=== PATIENT | male | born 1970 | race Caucasian/White ===

== ENCOUNTER 2018-10-23 08:16 | Emergency (ER) | payer BC ==
[2018-10-23 08:51] VITALS: BP 155/58
--- NOTE | 2018-10-23 09:39 | UC ---
Abdominal Pain Male HPI - HPI Summary HPI Summary: The patient is a 47-year-old male that has had right flank pain for 6 days. His pain is generally constant but he does get some relief if he sits still in a chair. He has had some anorexia. He has had a change in bowel habits with some constipation alternating with loose stool. He has not had any fever or chills. He has not had any nausea or vomiting. He denies any UTI symptoms. - History of Current Complaint Chief Complaint: UCAbdominalPain Stated Complaint: RT SIDE PAIN Time Seen by Provider: 10/23/18 09:23 Hx Obtained From: Patient Onset/Duration: Gradual Onset, Lasting Days Timing: Constant Severity Initially: Mild Severity Currently: Moderate Pain Intensity: 5 - severe at times Pain Scale Used: 0-10 Numeric Location: Diffuse - right flank Radiates: No Character: Aching Aggravating Factor(s): Food, Movement Alleviating Factor(s): Rest Associated Signs And Symptoms: Positive: Constipation, Decreased Appetite, Diarrhea - loose stools. Negative: Diaphoresis, Fever, Cough, Chest Pain, Dizzy , Back Pain, Blood in Stool, Urinary Symptoms, Nausea, Vomiting, Penile Discharge - Allergies/Home Medications Allergies/Adverse Reactions: Allergies Allergy/AdvReac Type Severity Reaction Status Date / Time No Known Allergies Allergy Verified 10/23/18 08:47 Home Medications: Home Medications Acetaminophen/Diphenhydramine [Tylenol Pm Ex-Strength Caplet] 2 each PO BEDTIME PRN 10/23/18 [History Confirmed 10/23/18] Ibuprofen TAB* [Advil TAB*] 400 mg PO Q6H PRN 10/23/18 [History Confirmed ] Melatonin 5 mg PO BEDTIME PRN 10/23/18 [History Confirmed 10/23/18] PMH/Surg Hx/FS Hx/Imm Hx Previously Healthy: Yes - Surgical History Surgical History: None - Family History Known Family History: Positive: Hypertension, Other - sister with Crohns - Social History Alcohol Use: None Substance Use Type: None Smoking Status (MU): Heavy Every Day Tobacco Smoker Amount Used/How Often: 1 PPD Length of Time of Smoking/Using Tobacco: Since Age 17 Review of Systems All Other Systems Reviewed And Are Negative: Yes Constitutional: Positive: Negative Skin: Positive: Negative Eyes: Positive: Negative ENT: Positive: Negative Respiratory: Positive: Negative Cardiovascular: Positive: Negative Gastrointestinal: Positive: Abdominal Pain, Diarrhea Genitourinary: Positive: Negative Motor: Positive: Negative Neurovascular: Positive: Negative Musculoskeletal: Positive: Negative Neurological: Positive: Negative Psychological: Positive: Negative Physical Exam Triage Information Reviewed: Yes Appearance: Well-Appearing, No Pain Distress, Well-Nourished Vital Signs: Initial Vital Signs Temp 97.6 F 10/23/18 08:41 Pulse 82 10/23/18 08:41 Resp 16 10/23/18 08:41 BP 155/58 10/23/18 08:41 Pulse Ox 99 10/23/18 08:41 Vital Signs Reviewed: Yes Eyes: Positive: Conjunctiva Clear ENT: Positive: Hearing grossly normal. Negative: Nasal congestion, Nasal drainage, Dental tenderness, Sinus tenderness, Uvula midline Neck: Positive: Supple, Nontender Respiratory: Positive: Lungs clear, Normal breath sounds, No respiratory distress, No accessory muscle use Cardiovascular: Positive: RRR, No Murmur Abdomen Description: Positive: CVA Tenderness (R) - slight. Negative: Nontender - tender RLQ and right flanks Bowel Sounds: Positive: Present Musculoskeletal: Positive: ROM Intact, No Edema Neurological: Positive: Alert Psychological Exam: Normal Skin Exam: Normal Diagnostics - Laboratory Diagnostic Studies Completed/Ordered: UA tr protein - Radiology No standard instances Radiology Interpretation Completed By: Radiologist Summary of Radiographic Findings: THERE IS MILD INFLAMMATORY CHANGE AND DILATATION OF THE PROXIMAL CELIAC TRUNK. THE. DIFFERENTIAL INCLUDES CELIAC ARTERY DISSECTION VERSUS ARTERITIS. CONSIDER FURTHER. EVALUATION WITH CT ANGIOGRAPHY OF THE ABDOME Abd Pain Male Course/Dx - Course Course Of Treatment: Advised he may have potentially serious life threatening cause of abd pain that needed a CT angiogram. HE REFUSED EMS TRANSFER. I spoke to Dr. Gutiérrez at [facility]. transfer accepted - Differential Dx/Clinical Impression Provider Diagnosis: Abdominal pain of unknown cause Discharge - Sign-Out/Discharge Documenting (check all that apply): Patient Departure All imaging exams completed and their final reports reviewed: Yes - Discharge Plan Condition: Stable Disposition: TRANS [facility] Referrals: No Primary Care Phys,NOPCP [Primary Care Provider] - Additional Instructions: To [facility] I spoke to Marla Fowler and they are expecting you Don't eat or drink en route take copies of CT - Billing Disposition and Condition Condition: STABLE Disposition: Trans Higher L[facility] of Care Fac
== END 2018-10-23 10:28 | disposition short-term general hospital (02) ==
LOC: UCCORT 08:16
DX: R10.9 Unspecified abdominal pain (principal); R10.31 Right lower quadrant pain; F17.210 Nicotine dependence, cigarettes, uncomplicated
CPT/HCPCS: 74176; 81003; 99202; G0463